=== PATIENT | female | born 1985 | race Caucasian/White ===

== ENCOUNTER 2021-05-05 20:27 | Emergency (ER) | payer OTHER, SELFPAY ==
--- NOTE | ~2021-05-05 | XR_ITS ---
EXAMINATION: XR CHEST CLINICAL INFORMATION: Shortness of breath. Wheezing. COMPARISON: Chest radiograph dated from 12/11/2017. TECHNIQUE: AP view of the chest was obtained. FINDINGS: Very mild interstitial prominence. No focal airspace opacities. Clear pleural spaces. Normal cardiomediastinal silhouette. No acute osseous findings. XR/XR chest 1V IMPRESSION: Mild interstitial prominence which could be seen with reactive airways disease, asthma or bronchitis.
[2021-05-05 20:34] VITALS: BP 140/80; BP 142/60; PULSE 86; PULSE 97; RESP 18; TEMP 36.8; O2SAT 97; O2SAT 98; BMI 23.0
[2021-05-05] MEDS: methylPREDNISolone Sod Succ 125 MG/2 ML VIAL IVPUSH (20:55)
[2021-05-05] MEDS: Magnesium Sulfate/H2O 2 GM/50 ML PIGGYBACK IV (20:58)
[2021-05-05 21:07] VITALS: BP 137/63; PULSE 76; RESP 16; TEMP 36.8; O2SAT 96
[2021-05-05] MEDS: Albuterol Sulfate (0.083%) 2.5 MG/3 ML VIAL.NEB 10 MG INHALE (21:10)
[2021-05-05 21:11] VITALS: PULSE 72; O2SAT 100
[2021-05-05 21:30] LABS: COVID-19 Test Negative (Negative); IDNOW Serial# 9DD0AD1C
--- NOTE | 2021-05-05 21:41 | ED_ITS ---
HPI - Asthma General Chief Complaint: Asthma Stated Complaint: sob Time Seen by Provider: 05/05/21 20:42 Source: patient and EMS Mode of arrival: EMS Limitations: no limitations History of Present Illness HPI Narrative: 35-year-old female with a history of asthma presents to the ER with 2 days of worsening shortness of breath and wheezing. She reports today when she woke up her breathing was significantly worse. She just ran out of her albuterol inhaler today. She reports waking up from a nap this afternoon struggling to breathe. She walked outside for the cool air and called 911. EMS found her diaphoretic and try padding. She had coarse inspiratory and expiratory wheezes throughout with accessory muscle use. She was immediately given a DuoNeb with significant improvement in her respiratory status. She reports for the last 2 days she has had dry cough with intermittent phlegm. She does not know the color. No fever or chills. She is fully vaccinated against COVID-19 with no known sick contacts. She has been cutting down on her cigarette smoking but is still around her boyfriend who continues to smoke, sometimes inside the house. complaint: asthma attack Onset (ago): day(s) (2) Severity: severe and worse than usual Context: ran out of meds and smoke exposure Associated symptoms: productive cough Asthma History: childhood onset Treatments Prior to Arrival: inhaled bronchodilator Related Data Current Asthma Therapy: none Previous Rx's Medication Instructions Recorded albuterol sulfate 90 mcg/actuation 2 puff INHALATION Q4-6H PRN #8.5 g 05/05/21 aerosol inhaler azithromycin 250 mg tablet See Rx Instructions .ROUTE 05/05/21 (Zithromax Z-Hussain) .COMPLEX #6 tab prednisone 20 mg tablet 40 mg PO DAILY #10 tab 05/05/21 Allergies Allergy/AdvReac Type Severity Reaction Status Date / Time No Known Allergies Allergy Verified 05/05/21 20:34 Review of Systems Review of Systems: Constitutional: No Fever, No Chills ENT/Mouth: No sore throat, No Rhinorrhea, No Swallowing Difficulty Cardiovascular: No Chest Pain, No SOB, No Orthopnea, No Edema Respiratory: + Cough, + Sputum, + Wheezing, + dyspnea Gastrointestinal: No Nausea, No Vomiting, No Diarrhea, No abdominal Pain Musculoskeletal: No joint pain, No Myalgias Skin: No Skin Lesions, No rash Neuro: No Weakness, No Numbness, No Dizziness, No Headache Psych: + Anxiety/Panic Heme/Lymph: No Bruising, No Lymphadenopathy PMFSH Past Medical History Attestation statement: The following information was validated with the patient. Medical History Asthma Heart murmur Social History Social History Advance Directives: No Advance Directives Information Provided: No Patient : No Physical Exam Vital Signs: Vital Signs: Last Vital Signs Temp 98.3 F 05/05/21 21:07 Pulse 72 05/05/21 21:11 Resp 16 05/05/21 21:07 BP 137/63 05/05/21 21:07 Pulse Ox 96 05/05/21 21:07 Body Mass Index 23.0 Appearance: Alert. Oriented X3. No acute distress. Eyes: Pupils equal, round and reactive to light. ENT: Pharynx normal. Neck: Normal inspection. Neck supple. CVS: Normal heart rate and rhythm. Pulses normal. Respiratory: No respiratory distress. Breath sounds with scattered expiratory wheezes, no rhonchi or rales. Able to speak in complete sentences. Abdomen: Soft and nontender. +BS x4 Skin: Skin warm and dry. Normal skin color. Normal skin turgor. No rashes. Extremities: No lower extremity edema. No calf tenderness or swelling. Neuro: Oriented X 3. No motor deficit. No sensory deficit. Course Course Course Narrative: 35-year-old female with history of asthma presents to the ER with worsening shortness of breath and wheezing for the last 2 days, significantly worsened today. Given a DuoNeb in rule with significant improvement in her wheezing and work of breathing. She has improved air entry, with oxygen saturations 97% on room air. She continues to have some expiratory wheezes scattered but not diffusely. Will give an hour long albuterol, IV Solu- Medrol, IV magnesium, check chest x-ray and COVID swab. Will reassess and monitor closely. Reevaluation(s) Reevaluation #1: Chest x-ray does not show any consolidation or pneumonia. It shows some interstitial prominence consistent with reactive airway disease or asthma. Her COVID test was negative. She feels much better after IV steroids and inhaled bronchodilator. She is stable for discharge home with treatment for acute asthma exacerbation. MDM - Asthma Lab Data Labs: Lab Results 05/05/21 Range/Units 21:06 COVID-19 ([place]) Negative (Negative) COVID-19 Clin Com See Note Critical Care Time Critical Care Time Critical Care Time: Yes Total Critical Care Time: 36 Attestation: I have personally provided critical care time exclusive of time spent on separately billable procedures. Time includes review of lab data, radiology results, discussion with consultants, and monitoring for potential decompensation. Intervention performed as documented. Discharge Plan Discharge Clinical Impression: Asthma with acute exacerbation Qualifiers: Asthma severity: unspecified severity Asthma persistence: unspecified Qualified Code(s): J45.901 - Unspecified asthma with (acute) exacerbation Patient Disposition: Home, Self-Care Instructions: Asthma (ED) Additional Instructions: Your chest x-ray did not show any pneumonia. You were negative for COVID-19. You are being treated for asthma exacerbation with oral steroids and antibiotics. Use the prescribed inhaler every 4 hours as needed for shortness of breath or wheezing. Stay away from cigarette smoking as well as secondhand smoke. Avoid toxic fumes and chemicals as this can irritate your lungs. Follow-up with your doctor. If you develop new or worsening symptoms call 911 or come back to the ER for further evaluation. Prescriptions: New prednisone 20 mg tablet 40 mg PO DAILY Qty: 10 RF: 0 azithromycin [Zithromax Z-Hussain] 250 mg tablet See Rx Instructions .ROUTE .COMPLEX Qty: 6 RF: 0 albuterol sulfate 90 mcg/actuation HFA aerosol inhaler 2 puff inhalation Q4-6H PRN (Reason: shortness of breath or wheezing) Qty: 8.5 RF: 1
[2021-05-05 22:42] VITALS: BP 152/69; PULSE 82; RESP 18; TEMP 36.6; O2SAT 99
== END 2021-05-05 22:47 | disposition home or self-care (01) ==
PROVIDERS: Physician Assistant; Emergency Provider Internal Medicine
DX: J45.901 Unspecified asthma with (acute) exacerbation (principal); Z79.899 Other long term (current) drug therapy; Z20.822 Contact with and (suspected) exposure to COVID-19
CPT/HCPCS: 36415; 71045; 87635; 94640; 94644; 96365; 96366; 96375; 99283; 99291; J2930; J3475

== ENCOUNTER 2024-01-02 13:36 | Outpatient (AMB) | payer MEDICARE, SELFPAY ==
--- NOTE | 2024-01-02 13:48 | MHC.OFFVIS ---
Vital Signs 01/02/24 13:50 Height 5 ft 3 in Weight 158 lb BMI 28.0 BP 102/60 Blood Pressure Location Lt brachial Position Sitting Pulse 76 Pulse Source Doppler Pulse Oximetry (%) 95 Oxygen Delivery Method Room Air Intake Visit Reasons: moderate persistent asthma Allergies No Known Allergies Allergy (Verified 01/02/24 13:51) HPI HPI moderate persistent asthma: Details: 38-year-old lady, former approximately 10 pack-year smoker, quit 3 years prior with underlying history of cardiac arrest with followed prolonged hospitalization with development of asthmatic and bronchiectatic symptoms with chronic cough thereafter. Patient states that the only relief to his symptoms is chronic low-dose prednisone. She has been started on trilogy with some improvement in her chronic symptoms. She is also continue to use duo nebs, now down to once a day. Patient does history of unspecified lung condition in her grandmother. She also complains of multiple environmental allergies. [facility] Medical History Asthma Heart murmur Social History (Updated 01/02/24 @ 13:54 by HOWARD Kingston) Patient Tobacco Use Status: Former Tobacco user Tobacco use type: Cigarette Review of Systems Resp Reports cough, Reports excessive phlegm production and Reports wheezing Aller/Immun Reports wheezing Physical Exam Vital Signs: Last Vital Signs Pulse 76 01/02/24 13:50 BP 102/60 01/02/24 13:50 Pulse Ox 95 01/02/24 13:50 Oxygen Delivery Method Room Air 01/02/24 13:50 BMI result Body Mass Index 28.0 Const General: no acute distress and alert Nutritional Appearance: not obese Orientation/consciousness: Other orientation findings ( oriented) HEENT Head: Yes atraumatic Eyes General: appearance normal, both eyes and all related structures Sclerae: sclerae normal EOM: EOMs intact bilaterally Neck Neck: Yes supple Lymphatic: no lymphadenopathy noted Resp Effort & Inspection: normal respiratory effort and no use of accessory muscles Auscultation: clear to auscultation bilaterally Cardio Rate: regular rate Rhythm: regular rhythm Heart sounds: no gallops, no murmurs and no rubs Skin General skin exam: other ( warm) Extrem General: No clubbing, No cyanosis and No edema Assessment & Plan Assessment & Plan (1) Asthma: Code(s): J45.909 - Unspecified asthma, uncomplicated Category: Medical Plan: Likely underlying asthma of unclear severity. Will obtain full PFT. Will continue on current regimen of trilogy, albuterol MDI, and duo nebs. (2) Bronchiectasis: Code(s): J47.9 - Bronchiectasis, uncomplicated Category: Medical Plan: Likely underlying bronchiectasis. Will obtain sputum culture and CT chest. (3) Environmental allergies: Code(s): Z91.09 - Other allergy status, other than to drugs and biological substances Category: Medical Plan: Will obtain IgE level, RAST panel, and CBC for further evaluation. Will continue on chronic low-dose prednisone at 1 mg daily at this time. Orders: Orders Resp Allergy Profile Region I Today J45.909 - Unspecified asthma, uncomplicated PFT pulmonary function test Today J45.909 - Unspecified asthma, uncomplicated CT chest wo IV con Today J47.9 - Bronchiectasis, uncomplicated Sputum Cult + Gram stain Today J47.9 - Bronchiectasis, uncomplicated Complete Blood Count Auto Diff Today Z91.09 - Other allergy status, other than to drugs and biological substances Medications: New swveoniuqih-gjrcgiuwh-usqyyjhd 100-62.5-25 mcg (Trelegy Ellipta) 1 ea inhalation DAILY 1 ea 6RF prednisone 1 mg PO DAILY 30 tabs 2RF Discontinued prednisone Discontinued Reason: Doctor's Order 40 mg (2 x 20 mg) PO DAILY 10 tabs 0RF Coding Level of Care Code New Pt Level 4 (43062) Diagnoses Asthma J45.909 Bronchiectasis J47.9 Environmental allergies Z91.09
[2024-01-02 13:50] VITALS: BP 102/60; PULSE 76; O2SAT 95; BMI 28.0
== END 2024-01-02 14:23 | disposition home or self-care (01) ==
PROVIDERS: PCP Internal Medicine; Visit Provider Internal Medicine Pulmonary Disease
DX: J45.909 Unspecified asthma, uncomplicated (principal); J47.9 Bronchiectasis, uncomplicated; Z91.09 Other allergy status, other than to drugs and biological substances
CPT/HCPCS: 99204

== ENCOUNTER → 2024-01-02 13:36 | Outpatient (BNVA) | payer MEDICARE, MEDICAID, SELFPAY | PROVIDERS: PCP Internal Medicine; Visit Provider Internal Medicine Pulmonary Disease | DX: J45.909 Unspecified asthma, uncomplicated (principal); J47.9 Bronchiectasis, uncomplicated; Z86.74 Personal history of sudden cardiac arrest; Z91.09 Other allergy status, other than to drugs and biological substances; Z87.891 Personal history of nicotine dependence | CPT/HCPCS: 99202 ==